=== PATIENT | female | born 1980 | race American Indian/Alaskan Native ===

== ENCOUNTER 2016-09-26 17:29 | Emergency (ER) | payer MEDICAID ==
[2016-09-26 17:41] VITALS: BP 107/67
--- NOTE | 2016-09-26 17:47 | Emergency Department Report ---
Chief Complaint: Abdominal Pain Stated Complaint: /ABD CRAMPS Time Seen by Provider: 09/26/16 17:41 - HPI History of Present Illness: PT states she is 8 weeks . PT states she had US 3 weeks ago and it did not show much. PT states she was told that was because she was too early to see anything. PT states she is on Progesterone. PT c/o lower abd pain x 2 days. - ROS Review of Systems: - dysuria +discharge - light yellow - vaginal bleeding - Exam Vital Signs: Vital Signs 09/26/16 17:36 Temperature 98.8 F Pulse Rate 81 Respiratory 20 Rate Blood Pressure 107/67 O2 Sat by Pulse 100 Oximetry Physical Exam: PT looks well, non toxic. gcs 15, steady gait PT's abd is soft. pt reports mild pain to R pelvic area MSE screening note: Focused history and physical exam performed. Due to findings the following was ordered: labs, us ED Disposition for MSE Condition: Stable Instructions: Abdominal Pain (ED)
[2016-09-26 18:28] LABS: Basophils % (Auto) 0.4 % (0.0-1.8); Eosinophils % (Auto) 1.5 % (0.0-4.3); Hematocrit 41.8 % (30.3-42.9); Hemoglobin 13.7 gm/dl (10.1-14.3); Mean Corpuscular HGB Conc 33 % (30-34); Mean Corpuscular Hemoglobin 31 pg (28-32); Mean Corpuscular Volume 96 fl (79-97); Platelet Count 244 K/mm3 (140-440); Red Blood Count 4.37 M/mm3 (3.65-5.03); Red Cell Distribution Width 13.7 % (13.2-15.2); White Blood Count 8.5 K/mm3 (4.5-11.0)
[2016-09-26 18:43] LABS: Alanine Aminotransferase 22 units/L (7-56); Albumin 3.7 g/dL (3.9-5); Albumin/Globulin Ratio 1.2 %; Alkaline Phosphatase 86 units/L (35-129); Anion Gap 18 mmol/L; Bilirubin,Total 0.5 mg/dL (0.1-1.2); Blood Urea Nitrogen 6 mg/dL (7-17); Calcium 8.9 mg/dL (8.4-10.2); Carbon Dioxide 22 mmol/L (22-30); Chloride 101.7 mmol/L (98-107); Glucose 72 mg/dL (65-100); Potassium 3.4 mmol/L (3.6-5.0); Sodium 138 mmol/L (137-145); Total Protein 6.9 g/dL (6.3-8.2)
--- NOTE | 2016-09-26 20:22 | Ultrasound Report ---
FINAL REPORT PROCEDURE: US OB transabdominal and TRANSVAGINAL TECHNIQUE: Real-time transabdominal and transvaginal sonography of the uterus, placenta, amniotic fluid, adnexa, and fetus was performed with image documentation. Measurements were obtained to determine age/size. M-mode Doppler was used to document heartbeat. CPT 08069 and 18717 HISTORY: 8 weeks , pain x 2 days COMPARISON: No prior studies are available for comparison. FINDINGS: ADDITIONAL GESTATION: None. CRL: 21.7 mm, which corresponds to a gestational age of: 8 weeks, 6 days. Yolk Sac: Normal. Embryonic Cardiac Activity: 174 beats per minute Gestational Sac: Normal. Amniotic fluid: Normal. Cervix: Normal. Right Ovary: Normal. Left Ovary: Normal. Estimated delivery date: 05/02/2017 No free fluid is seen IMPRESSION: 1. Single live intrauterine gestation at approximately 8 weeks, 6 days. 2. EDC by US 05/02/2017 3. Complete anatomic survey at 18-20 weeks suggested.
--- NOTE | 2016-09-26 20:22 | Ultrasound Report ---
FINAL REPORT PROCEDURE: US OB transabdominal and TRANSVAGINAL TECHNIQUE: Real-time transabdominal and transvaginal sonography of the uterus, placenta, amniotic fluid, adnexa, and fetus was performed with image documentation. Measurements were obtained to determine age/size. M-mode Doppler was used to document heartbeat. CPT 20661 and 63473 HISTORY: 8 weeks , pain x 2 days COMPARISON: No prior studies are available for comparison. FINDINGS: ADDITIONAL GESTATION: None. CRL: 21.7 mm, which corresponds to a gestational age of: 8 weeks, 6 days. Yolk Sac: Normal. Embryonic Cardiac Activity: 174 beats per minute Gestational Sac: Normal. Amniotic fluid: Normal. Cervix: Normal. Right Ovary: Normal. Left Ovary: Normal. Estimated delivery date: 05/02/2017 No free fluid is seen IMPRESSION: 1. Single live intrauterine gestation at approximately 8 weeks, 6 days. 2. EDC by US 05/02/2017 3. Complete anatomic survey at 18-20 weeks suggested. PROCEDURE: TECHNIQUE: HISTORY: COMPARISON: FINDINGS: IMPRESSION:
--- NOTE | 2016-09-28 01:40 | ED Elopement Review ---
ED Pt Elopement review - Results review Lab results: Laboratory Tests 09/26/16 09/26/16 09/26/16 17:52 17:52 17:52 WBC 8.5 RBC 4.37 Hgb 13.7 Hct 41.8 MCV 96 MCH 31 MCHC 33 RDW 13.7 Plt Count 244 Lymph % (Auto) 33.1 [place] % (Auto) 10.9 H Eos % (Auto) 1.5 Baso % (Auto) 0.4 Lymph # 2.8 [place] # 0.9 H Eos # 0.1 Baso # 0.0 Seg Neutrophils % 54.1 Seg Neutrophils # 4.6 Sodium 138 Potassium 3.4 L Chloride 101.7 Carbon Dioxide 22 Anion Gap 18 BUN 6 L Creatinine 0.5 L Estimated GFR > 60 BUN/Creatinine Ratio 12.00 Glucose 72 Calcium 8.9 Total Bilirubin 0.5 AST 21 ALT 22 Alkaline Phosphatase 86 Total Protein 6.9 Albumin 3.7 L Albumin/Globulin Ratio 1.2 HCG, Quant 77947 H Blood Type 09/26/16 17:52 WBC RBC Hgb Hct MCV MCH MCHC RDW Plt Count Lymph % (Auto) [place] % (Auto) Eos % (Auto) Baso % (Auto) Lymph # [place] # Eos # Baso # Seg Neutrophils % Seg Neutrophils # Sodium Potassium Chloride Carbon Dioxide Anion Gap BUN Creatinine Estimated GFR BUN/Creatinine Ratio Glucose Calcium Total Bilirubin AST ALT Alkaline Phosphatase Total Protein Albumin Albumin/Globulin Ratio HCG, Quant Blood Type O POSITIVE - Call Back decision Pt Call Back Decision: No action required
== END 2016-09-26 22:15 | disposition left against medical advice (07) ==
LOC: ED 17:29
DX: O26.891 Other specified pregnancy related conditions, first trimester (principal); R10.30 Lower abdominal pain, unspecified; Z3A.01 Less than 8 weeks gestation of pregnancy; Z53.21 Procedure and treatment not carried out due to patient leaving prior to being seen by health care provider
CPT/HCPCS: 36415; 76801; 76817; 80053; 84702; 85025; 86900; 86901